=== PATIENT | female | born 1970 | race American Indian/Alaskan Native ===

== ENCOUNTER 2021-01-17 22:51 | Observation (INO) | payer BC, OTHER ==
[2021-01-17] MEDS ORDERED: Pantoprazole 40 MG Vial IVPUSH ONE (23:26)
[2021-01-17 23:40] LABS: ANION GAP 18.9 mEq/L (7-13); CHLORIDE,CL 96 mmol/L (98-107); SODIUM,NA 135 mmol/L (136-145)
[2021-01-17] MEDS ORDERED: Iopamidol 612 MG/ML 100 ML Bottle IVPUSH ONE (23:44)
[2021-01-18] MEDS ORDERED: Sodium Chloride 0.9% 500 ML IV SCH (00:15)
--- NOTE | 2021-01-18 00:55 | EDM.PDOC ---
ED HPI GENERAL MEDICAL PROBLEM - General Chief Complaint: Gastrointestinal Problem Stated Complaint: BLEEDING OUT OF REAREND. PER PT Time Seen by Provider: 01/17/21 23:10 Source of Information: Reports: Patient History Limitations: Reports: No Limitations - History of Present Illness INITIAL COMMENTS - FREE TEXT/NARRATIVE: ED with c/o bleeding from rectum 2 bloody stools today, similar episode couple months ago but did not follow up. Has not had colonoscopy in past. Admits hx ETOH daily , liter tequila daily. No nausea or vomiting. no fever, no urinary c/o. Has been told liver enzymes up in past but had gotten better. Last clinic estimates 6 mos ago. 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 - Past Surgical History Female Surgical History: Reports: Salpingo-Oophorectomy Other Female Surgeries/Procedures: Previous tubal with removal of 1 ovary and fallopian tube. Social & Family History - Tobacco Use Tobacco Use Status *Q: Never Tobacco User - Caffeine Use Caffeine Use: Reports: None - Alcohol Use Days Per Week of Alcohol Use: 7 Number of Drinks Per Day: 8 Total Drinks Per Week: 56 - Recreational Drug Use Recreational Drug Use: No ED ROS GENERAL - Review of Systems Review Of Systems: Comprehensive ROS is negative, except as noted in HPI. ED EXAM, GI/ABD - Physical Exam Exam: See Below Exam Limited By: No Limitations General Appearance: Alert, No Apparent Distress, Anxious Eyes: Bilateral: EOMI, Pale Conjunctiva Ears: Normal External Exam, Normal TMs Nose: Normal Inspection Throat/Mouth: Normal Inspection, Normal Lips, Normal Voice, Other (poor dentatio n) Head: Atraumatic, Normocephalic Neck: Normal Inspection Respiratory/Chest: No Respiratory Distress, Lungs Clear, Normal Breath Sounds Cardiovascular: Normal Peripheral Pulses, Regular Rate, Rhythm GI/Abdominal Exam: Normal Bowel Sounds, Soft, Non-Tender Rectal (Female) Exam: Heme + Stool Back Exam: Normal Inspection Extremities: Normal Inspection Neurological: Alert, Oriented, Normal Cognition Psychiatric: Normal Affect Skin Exam: Warm, Dry, Intact Course - Vital Signs Last Recorded V/S: Last Vital Signs Temp 98.4 F 01/18/21 08:00 Pulse 95 01/18/21 08:00 Resp 20 01/18/21 08:00 BP 100/65 01/18/21 08:00 Pulse Ox 97 01/18/21 08:00 - Orders/Labs/Meds Labs: Laboratory Tests 01/17/21 01/17/21 01/17/21 Range/Units 23:07 23:07 23:07 WBC 7.3 (5.0-10.0) 10^3/uL RBC 3.73 L (4.2-5.4) 10^6/uL Hgb 13.0 (12.0-16.0) g/dL Hct 38.7 (37.0-47.0) % MCV 103.8 H (80-100) fL MCH 34.9 H (27.0-34.0) pg MCHC 33.6 (33.0-35.0) g/dL Plt Count 127 L (150-450) 10^3/uL Neut % (Auto) 49.7 (42.2-75.2) % Lymph % (Auto) 38.6 (20.5-50.1) % [place] % (Auto) 10.6 H (2-8) % Eos % (Auto) 0.7 L (1.0-3.0) % Baso % (Auto) 0.4 (0.0-1.0) % Sodium 135 L (136-145) mmol/L Potassium 3.9 (3.5-5.1) mmol/L Chloride 96 L (98-107) mmol/L Carbon Dioxide 24 (21-32) mmol/L Anion Gap 18.9 H (7-13) mEq/L BUN 3 L (7-18) mg/dL Creatinine 0.50 L (0.55-1.02) mg/dL Est Cr Clr Drug Dosing 95.61 mL/min Estimated GFR (MDRD) > 60 BUN/Creatinine Ratio 6.0 (No establ ref range) Glucose 110 H (70-99) mg/dL Calcium 8.4 L (8.5-10.1) mg/dL Total Bilirubin 0.9 (0.2-1.0) mg/dL AST 283 H (15-37) U/L ALT 103 H (14-59) U/L Alkaline Phosphatase 308 H (46-116) U/L Total Protein 7.5 (6.4-8.2) g/dL Albumin 3.5 (3.4-5.0) g/dL Globulin 4.0 Albumin/Globulin Ratio 0.9 Amylase 40 (25-115) U/L Lipase 309 (73-393) U/L Urine Color (YELLOW) Urine Appearance (CLEAR) Urine pH (5.0-9.0) Ur Specific [place] (1.005-1.030) Urine Protein (NEGATIVE) Urine Glucose (UA) (NEGATIVE) Urine Ketones (NEGATIVE) Urine Occult Blood (NEGATIVE) Urine Nitrite (NEGATIVE) Urine Bilirubin (NEGATIVE) Urine Urobilinogen (0.2-1.0) mg/dL Ur Leukocyte Esterase (NEGATIVE) Urine RBC (0-5) /HPF Urine WBC (0-5/HPF) /HPF Ur Epithelial Cells (NOT SEEN) /HPF Urine Bacteria (0-FEW/HPF) /HPF Urine Opiates Screen (NEGATIVE) Ur Oxycodone Screen (NEGATIVE) Urine Methadone Screen (NEGATIVE) Ur Barbiturates Screen (NEGATIVE) U Tricyclic Antidepress (NEGATIVE) Ur Phencyclidine Scrn (NEGATIVE) Ur Amphetamine Screen (NEGATIVE) U Methamphetamines Scrn (NEGATIVE) Urine MDMA Screen (NEGATIVE) U Benzodiazepines Scrn (NEGATIVE) Urine Cocaine Screen (NEGATIVE) U Marijuana (THC) Screen (NEGATIVE) Ethyl Alcohol 332 (0) mg/dL SARS-CoV-2 RNA (HUSSAIN) (NEGATIVE) Blood Type O POSITIVE Gel Antibody Screen Negative 01/18/21 01/18/21 01/18/21 Range/Units 00:30 01:00 01:00 WBC (5.0-10.0) 10^3/uL RBC (4.2-5.4) 10^6/uL Hgb (12.0-16.0) g/dL Hct (37.0-47.0) % MCV (80-100) fL MCH (27.0-34.0) pg MCHC (33.0-35.0) g/dL Plt Count (150-450) 10^3/uL Neut % (Auto) (42.2-75.2) % Lymph % (Auto) (20.5-50.1) % [place] % (Auto) (2-8) % Eos % (Auto) (1.0-3.0) % Baso % (Auto) (0.0-1.0) % Sodium (136-145) mmol/L Potassium (3.5-5.1) mmol/L Chloride (98-107) mmol/L Carbon Dioxide (21-32) mmol/L Anion Gap (7-13) mEq/L BUN (7-18) mg/dL Creatinine (0.55-1.02) mg/dL Est Cr Clr Drug Dosing mL/min Estimated GFR (MDRD) BUN/Creatinine Ratio (No establ ref range) Glucose (70-99) mg/dL Calcium (8.5-10.1) mg/dL Total Bilirubin (0.2-1.0) mg/dL AST (15-37) U/L ALT (14-59) U/L Alkaline Phosphatase (46-116) U/L Total Protein (6.4-8.2) g/dL Albumin (3.4-5.0) g/dL Globulin Albumin/Globulin Ratio Amylase (25-115) U/L Lipase (73-393) U/L Urine Color Yellow (YELLOW) Urine Appearance Slightly cloudy (CLEAR) Urine pH 7.0 (5.0-9.0) Ur Specific [place] 1.010 (1.005-1.030) Urine Protein Negative (NEGATIVE) Urine Glucose (UA) Negative (NEGATIVE) Urine Ketones Negative (NEGATIVE) Urine Occult Blood Trace-intact H (NEGATIVE) Urine Nitrite Negative (NEGATIVE) Urine Bilirubin Negative (NEGATIVE) Urine Urobilinogen 0.2 (0.2-1.0) mg/dL Ur Leukocyte Esterase Negative (NEGATIVE) Urine RBC 0-5 (0-5) /HPF Urine WBC 0-5 (0-5/HPF) /HPF Ur Epithelial Cells Rare (NOT SEEN) /HPF Urine Bacteria Rare (0-FEW/HPF) /HPF Urine Opiates Screen Negative (NEGATIVE) Ur Oxycodone Screen Negative (NEGATIVE) Urine Methadone Screen Negative (NEGATIVE) Ur Barbiturates Screen Negative (NEGATIVE) U Tricyclic Antidepress Negative (NEGATIVE) Ur Phencyclidine Scrn Negative (NEGATIVE) Ur Amphetamine Screen Negative (NEGATIVE) U Methamphetamines Scrn Negative (NEGATIVE) Urine MDMA Screen Negative (NEGATIVE) U Benzodiazepines Scrn Negative (NEGATIVE) Urine Cocaine Screen Negative (NEGATIVE) U Marijuana (THC) Screen Negative (NEGATIVE) Ethyl Alcohol (0) mg/dL SARS-CoV-2 RNA (HUSSAIN) Negative (NEGATIVE) Blood Type Gel Antibody Screen 01/18/21 Range/Units 02:05 WBC (5.0-10.0) 10^3/uL RBC (4.2-5.4) 10^6/uL Hgb 11.3 L D (12.0-16.0) g/dL Hct 34.1 L (37.0-47.0) % MCV (80-100) fL MCH (27.0-34.0) pg MCHC (33.0-35.0) g/dL Plt Count (150-450) 10^3/uL Neut % (Auto) (42.2-75.2) % Lymph % (Auto) (20.5-50.1) % [place] % (Auto) (2-8) % Eos % (Auto) (1.0-3.0) % Baso % (Auto) (0.0-1.0) % Sodium (136-145) mmol/L Potassium (3.5-5.1) mmol/L Chloride (98-107) mmol/L Carbon Dioxide (21-32) mmol/L Anion Gap (7-13) mEq/L BUN (7-18) mg/dL Creatinine (0.55-1.02) mg/dL Est Cr Clr Drug Dosing mL/min Estimated GFR (MDRD) BUN/Creatinine Ratio (No establ ref range) Glucose (70-99) mg/dL Calcium (8.5-10.1) mg/dL Total Bilirubin (0.2-1.0) mg/dL AST (15-37) U/L ALT (14-59) U/L Alkaline Phosphatase (46-116) U/L Total Protein (6.4-8.2) g/dL Albumin (3.4-5.0) g/dL Globulin Albumin/Globulin Ratio Amylase (25-115) U/L Lipase (73-393) U/L Urine Color (YELLOW) Urine Appearance (CLEAR) Urine pH (5.0-9.0) Ur Specific [place] (1.005-1.030) Urine Protein (NEGATIVE) Urine Glucose (UA) (NEGATIVE) Urine Ketones (NEGATIVE) Urine Occult Blood (NEGATIVE) Urine Nitrite (NEGATIVE) Urine Bilirubin (NEGATIVE) Urine Urobilinogen (0.2-1.0) mg/dL Ur Leukocyte Esterase (NEGATIVE) Urine RBC (0-5) /HPF Urine WBC (0-5/HPF) /HPF Ur Epithelial Cells (NOT SEEN) /HPF Urine Bacteria (0-FEW/HPF) /HPF Urine Opiates Screen (NEGATIVE) Ur Oxycodone Screen (NEGATIVE) Urine Methadone Screen (NEGATIVE) Ur Barbiturates Screen (NEGATIVE) U Tricyclic Antidepress (NEGATIVE) Ur Phencyclidine Scrn (NEGATIVE) Ur Amphetamine Screen (NEGATIVE) U Methamphetamines Scrn (NEGATIVE) Urine MDMA Screen (NEGATIVE) U Benzodiazepines Scrn (NEGATIVE) Urine Cocaine Screen (NEGATIVE) U Marijuana (THC) Screen (NEGATIVE) Ethyl Alcohol (0) mg/dL SARS-CoV-2 RNA (HUSSAIN) (NEGATIVE) Blood Type Gel Antibody Screen Meds: Medications Discontinued Medications Generic Name Dose Route Start Last Admin Trade Name Freq PRN Reason Stop Dose Admin Sodium Chloride 500 mls @ 999 mls/hr 01/18/21 00:15 01/18/21 00:29 Normal Saline IV 999 mls/hr .BOLUS ANGE Administration Lactated Ringer's 1,000 mls @ 125 mls/hr 01/18/21 03:00 01/18/21 03:09 Ringers, Lactated IV 125 mls/hr ASDIRECTED ANGE Administration Influenza Virus Vaccine 1 each 01/18/21 09:00 01/18/21 10:27 Pharmacy To Dose - Influenza Vaccine IM Not Given DAILY [facility] Influenza Virus Vaccine 60 mcg 01/18/21 10:45 01/18/21 11:35 Flu Vacc [id number](6mos Up)/Pf 60 Mcg/0.5 Ml Syringe IM 01/18/21 10:46 60 mcg .ONCE ONE Administration Iopamidol 100 ml 01/17/21 23:44 01/18/21 00:14 Iopamidol 612 Mg/Ml 100 Ml Bottle IVPUSH 01/17/21 23:45 75 ml ONETIME ONE Administration Ondansetron HCl 4 mg 01/18/21 02:55 Ondansetron 4 Mg/2 Ml Sdv IVPUSH Q6H PRN Nausea/Vomiting Pantoprazole Sodium 80 mg 01/17/21 23:26 01/17/21 23:47 Pantoprazole 40 Mg Vial IVPUSH 01/17/21 23:27 80 mg .BOLUS ONE Administration - Re-Assessments/Exams Free Text/Narrative Re-Assessment/Exam: 01/18/21 02:32 [facility], No immediate bed available but will add to waiting list, currently #2 . GI bleed., multiple diverticuli on CT. Chronic ETOH. Departure - Departure Time of Disposition: 02:33 Disposition: Refer to Observation Condition: Fair Clinical Impression: GI bleed, Chronic alcohol dependence, continuous, Intoxication, Diverticulosis of colon - Discharge Information *PRESCRIPTION DRUG MONITORING PROGRAM REVIEWED*: No *COPY OF PRESCRIPTION DRUG MONITORING REPORT IN PATIENT SUSANA: No Sepsis Event Note (ED) - Evaluation Sepsis Screening Result: No Definite Risk
--- NOTE | 2021-01-18 01:08 | CT ---
PROCEDURE INFORMATION: Exam: CT Abdomen And Pelvis With Contrast Exam date and time: 01/18/2021 12:00 AM Age: 50 years old Clinical indication: Other: Rectal bleeding TECHNIQUE: Imaging protocol: Computed tomography of the abdomen and pelvis with contrast. Radiation optimization: All CT scans at this facility use at least one of these dose optimization techniques: automated exposure control; mA and/or kV adjustment per patient size (includes targeted exams where dose is matched to clinical indication); or iterative reconstruction. Contrast material: ISOVUE 300; Contrast volume: 75 ml; Contrast route: INTRAVENOUS (IV); COMPARISON: No relevant prior studies available. FINDINGS: Liver: Moderate hepatic steatosis Gallbladder and bile ducts: Normal. No calcified stones. No ductal dilation. Pancreas: Normal. No ductal dilation. Spleen: Normal. No splenomegaly. Adrenal glands: Normal. No mass. Kidneys and ureters: Normal. No hydronephrosis. Stomach and bowel: Scattered diverticuli throughout the colon. Pericolonic fat planes are preserved. Appendix: No evidence of appendicitis. Intraperitoneal space: Unremarkable. No free air. No significant fluid collection. Vasculature: Unremarkable. No abdominal aortic aneurysm. Lymph nodes: Unremarkable. No enlarged lymph nodes. Urinary bladder: Unremarkable as visualized. Reproductive: Suggestion of moderate-sized lower uterine body fibroid Bones/joints: Unremarkable. No acute fracture. Soft tissues: Unremarkable. IMPRESSION: 1. Diffuse mild colonic diverticulosis 2. Hepatic steatosis
[2021-01-18 01:11] LABS: AMPHETAMINES,URINE NEGATIVE (NEGATIVE); BARBITURATES,URINE NEGATIVE (NEGATIVE); BENZODIAZEPINE,URINE NEGATIVE (NEGATIVE); MDMA (ECSTASY), URINE NEGATIVE (NEGATIVE); METHADONE,URINE NEGATIVE (NEGATIVE); METHAMPHETAMINES,URINE NEGATIVE (NEGATIVE); OPIATES,URINE NEGATIVE (NEGATIVE); OXYCODONE,URINE NEGATIVE (NEGATIVE); PHENCYCLIDINE,URINE NEGATIVE (NEGATIVE); TCA,URINE NEGATIVE (NEGATIVE)
[2021-01-18] MEDS ORDERED: Ondansetron 4 MG/2 ML SDV IVPUSH PRN (02:55)
[2021-01-18] MEDS ORDERED: Lactated Ringers 1,000 ML IV SCH (03:00)
--- NOTE | 2021-01-18 10:34 | PCM.DCSUM1 ---
Discharge Summary - Hospital Course Free Text/Narrative:: Barb was admitted earlier this morning with hematochezia. She was noted to have an almost two-point hemoglobin drop when arriving to the ED. She was admitted overnight for observation, to monitor her bleeding, and consider possible transfer this morning to a tertiary care center. She reports feeling well this morning, she has not had any further bleeding per rectum since her admission from the ED. She was able to walk and eat breakfast this morning without any difficulties, is able to attend all of her ADLs without problem. - Discharge Data Discharge Date: 01/18/21 Discharge Disposition: Home, Self-Care 01 Condition: Stable - Referral to Home Health Primary Care Physician: Harvey Daniels - Discharge Plan *PRESCRIPTION DRUG MONITORING PROGRAM REVIEWED*: No *COPY OF PRESCRIPTION DRUG MONITORING REPORT IN PATIENT SUSANA: No Home Medications: Home Meds lisinopriL [Lisinopril] 20 mg PO DAILY 01/17/21 [History] Patient Handouts: Lower Gastrointestinal Bleeding Referrals: Jeremiah,Harvey [Primary Care Provider] - - Discharge Summary/Plan Comment DC Time >30 min.: No Total # of Minutes for Discharge Time: 15 - General Info Date of Service: 01/18/21 Admission Dx/Problem (Free Text: Admission Diagnosis/Problem Admission Diagnosis/Problem GI bleed not requiring more than 4 units of blood in 24 hours, ICU, or surgery Subjective Update: See above summary - Patient Data Vitals - Most Recent: Last Vital Signs Temp 98.4 F 01/18/21 08:00 Pulse 95 01/18/21 08:00 Resp 20 01/18/21 08:00 BP 100/65 01/18/21 08:00 Pulse Ox 97 01/18/21 08:00 Weight - Most Recent: 143 lb 9.6 oz I&O - Last 24 hours: Intake & Output 01/17/21 01/18/21 01/18/21 22:59 06:59 14:59 Intake Total 500 Output Total 400 Balance 100 Lab Results - Last 24 hrs: Laboratory Results - last 24 hr 01/17/21 01/17/21 01/17/21 Range/Units 23:07 23:07 23:07 WBC 7.3 (5.0-10.0) 10^3/uL RBC 3.73 L (4.2-5.4) 10^6/uL Hgb 13.0 (12.0-16.0) g/dL Hct 38.7 (37.0-47.0) % MCV 103.8 H (80-100) fL MCH 34.9 H (27.0-34.0) pg MCHC 33.6 (33.0-35.0) g/dL Plt Count 127 L (150-450) 10^3/uL Neut % (Auto) 49.7 (42.2-75.2) % Lymph % (Auto) 38.6 (20.5-50.1) % [place] % (Auto) 10.6 H (2-8) % Eos % (Auto) 0.7 L (1.0-3.0) % Baso % (Auto) 0.4 (0.0-1.0) % Sodium 135 L (136-145) mmol/L Potassium 3.9 (3.5-5.1) mmol/L Chloride 96 L (98-107) mmol/L Carbon Dioxide 24 (21-32) mmol/L Anion Gap 18.9 H (7-13) mEq/L BUN 3 L (7-18) mg/dL Creatinine 0.50 L (0.55-1.02) mg/dL Est Cr Clr Drug Dosing 95.61 mL/min Estimated GFR (MDRD) > 60 BUN/Creatinine Ratio 6.0 (No establ ref range) Glucose 110 H (70-99) mg/dL Calcium 8.4 L (8.5-10.1) mg/dL Total Bilirubin 0.9 (0.2-1.0) mg/dL AST 283 H (15-37) U/L ALT 103 H (14-59) U/L Alkaline Phosphatase 308 H (46-116) U/L Total Protein 7.5 (6.4-8.2) g/dL Albumin 3.5 (3.4-5.0) g/dL Globulin 4.0 Albumin/Globulin Ratio 0.9 Amylase 40 (25-115) U/L Lipase 309 (73-393) U/L Urine Color (YELLOW) Urine Appearance (CLEAR) Urine pH (5.0-9.0) Ur Specific [place] (1.005-1.030) Urine Protein (NEGATIVE) Urine Glucose (UA) (NEGATIVE) Urine Ketones (NEGATIVE) Urine Occult Blood (NEGATIVE) Urine Nitrite (NEGATIVE) Urine Bilirubin (NEGATIVE) Urine Urobilinogen (0.2-1.0) mg/dL Ur Leukocyte Esterase (NEGATIVE) Urine RBC (0-5) /HPF Urine WBC (0-5/HPF) /HPF Ur Epithelial Cells (NOT SEEN) /HPF Urine Bacteria (0-FEW/HPF) /HPF Urine Opiates Screen (NEGATIVE) Ur Oxycodone Screen (NEGATIVE) Urine Methadone Screen (NEGATIVE) Ur Barbiturates Screen (NEGATIVE) U Tricyclic Antidepress (NEGATIVE) Ur Phencyclidine Scrn (NEGATIVE) Ur Amphetamine Screen (NEGATIVE) U Methamphetamines Scrn (NEGATIVE) Urine MDMA Screen (NEGATIVE) U Benzodiazepines Scrn (NEGATIVE) Urine Cocaine Screen (NEGATIVE) U Marijuana (THC) Screen (NEGATIVE) Ethyl Alcohol 332 (0) mg/dL SARS-CoV-2 RNA (HUSSAIN) (NEGATIVE) Blood Type O POSITIVE Gel Antibody Screen Negative 01/18/21 01/18/21 01/18/21 Range/Units 00:30 01:00 01:00 WBC (5.0-10.0) 10^3/uL RBC (4.2-5.4) 10^6/uL Hgb (12.0-16.0) g/dL Hct (37.0-47.0) % MCV (80-100) fL MCH (27.0-34.0) pg MCHC (33.0-35.0) g/dL Plt Count (150-450) 10^3/uL Neut % (Auto) (42.2-75.2) % Lymph % (Auto) (20.5-50.1) % [place] % (Auto) (2-8) % Eos % (Auto) (1.0-3.0) % Baso % (Auto) (0.0-1.0) % Sodium (136-145) mmol/L Potassium (3.5-5.1) mmol/L Chloride (98-107) mmol/L Carbon Dioxide (21-32) mmol/L Anion Gap (7-13) mEq/L BUN (7-18) mg/dL Creatinine (0.55-1.02) mg/dL Est Cr Clr Drug Dosing mL/min Estimated GFR (MDRD) BUN/Creatinine Ratio (No establ ref range) Glucose (70-99) mg/dL Calcium (8.5-10.1) mg/dL Total Bilirubin (0.2-1.0) mg/dL AST (15-37) U/L ALT (14-59) U/L Alkaline Phosphatase (46-116) U/L Total Protein (6.4-8.2) g/dL Albumin (3.4-5.0) g/dL Globulin Albumin/Globulin Ratio Amylase (25-115) U/L Lipase (73-393) U/L Urine Color Yellow (YELLOW) Urine Appearance Slightly cloudy (CLEAR) Urine pH 7.0 (5.0-9.0) Ur Specific [place] 1.010 (1.005-1.030) Urine Protein Negative (NEGATIVE) Urine Glucose (UA) Negative (NEGATIVE) Urine Ketones Negative (NEGATIVE) Urine Occult Blood Trace-intact H (NEGATIVE) Urine Nitrite Negative (NEGATIVE) Urine Bilirubin Negative (NEGATIVE) Urine Urobilinogen 0.2 (0.2-1.0) mg/dL Ur Leukocyte Esterase Negative (NEGATIVE) Urine RBC 0-5 (0-5) /HPF Urine WBC 0-5 (0-5/HPF) /HPF Ur Epithelial Cells Rare (NOT SEEN) /HPF Urine Bacteria Rare (0-FEW/HPF) /HPF Urine Opiates Screen Negative (NEGATIVE) Ur Oxycodone Screen Negative (NEGATIVE) Urine Methadone Screen Negative (NEGATIVE) Ur Barbiturates Screen Negative (NEGATIVE) U Tricyclic Antidepress Negative (NEGATIVE) Ur Phencyclidine Scrn Negative (NEGATIVE) Ur Amphetamine Screen Negative (NEGATIVE) U Methamphetamines Scrn Negative (NEGATIVE) Urine MDMA Screen Negative (NEGATIVE) U Benzodiazepines Scrn Negative (NEGATIVE) Urine Cocaine Screen Negative (NEGATIVE) U Marijuana (THC) Screen Negative (NEGATIVE) Ethyl Alcohol (0) mg/dL SARS-CoV-2 RNA (HUSSAIN) Negative (NEGATIVE) Blood Type Gel Antibody Screen 01/18/21 Range/Units 02:05 WBC (5.0-10.0) 10^3/uL RBC (4.2-5.4) 10^6/uL Hgb 11.3 L D (12.0-16.0) g/dL Hct 34.1 L (37.0-47.0) % MCV (80-100) fL MCH (27.0-34.0) pg MCHC (33.0-35.0) g/dL Plt Count (150-450) 10^3/uL Neut % (Auto) (42.2-75.2) % Lymph % (Auto) (20.5-50.1) % [place] % (Auto) (2-8) % Eos % (Auto) (1.0-3.0) % Baso % (Auto) (0.0-1.0) % Sodium (136-145) mmol/L Potassium (3.5-5.1) mmol/L Chloride (98-107) mmol/L Carbon Dioxide (21-32) mmol/L Anion Gap (7-13) mEq/L BUN (7-18) mg/dL Creatinine (0.55-1.02) mg/dL Est Cr Clr Drug Dosing mL/min Estimated GFR (MDRD) BUN/Creatinine Ratio (No establ ref range) Glucose (70-99) mg/dL Calcium (8.5-10.1) mg/dL Total Bilirubin (0.2-1.0) mg/dL AST (15-37) U/L ALT (14-59) U/L Alkaline Phosphatase (46-116) U/L Total Protein (6.4-8.2) g/dL Albumin (3.4-5.0) g/dL Globulin Albumin/Globulin Ratio Amylase (25-115) U/L Lipase (73-393) U/L Urine Color (YELLOW) Urine Appearance (CLEAR) Urine pH (5.0-9.0) Ur Specific [place] (1.005-1.030) Urine Protein (NEGATIVE) Urine Glucose (UA) (NEGATIVE) Urine Ketones (NEGATIVE) Urine Occult Blood (NEGATIVE) Urine Nitrite (NEGATIVE) Urine Bilirubin (NEGATIVE) Urine Urobilinogen (0.2-1.0) mg/dL Ur Leukocyte Esterase (NEGATIVE) Urine RBC (0-5) /HPF Urine WBC (0-5/HPF) /HPF Ur Epithelial Cells (NOT SEEN) /HPF Urine Bacteria (0-FEW/HPF) /HPF Urine Opiates Screen (NEGATIVE) Ur Oxycodone Screen (NEGATIVE) Urine Methadone Screen (NEGATIVE) Ur Barbiturates Screen (NEGATIVE) U Tricyclic Antidepress (NEGATIVE) Ur Phencyclidine Scrn (NEGATIVE) Ur Amphetamine Screen (NEGATIVE) U Methamphetamines Scrn (NEGATIVE) Urine MDMA Screen (NEGATIVE) U Benzodiazepines Scrn (NEGATIVE) Urine Cocaine Screen (NEGATIVE) U Marijuana (THC) Screen (NEGATIVE) Ethyl Alcohol (0) mg/dL SARS-CoV-2 RNA (HUSSAIN) (NEGATIVE) Blood Type Gel Antibody Screen VENKAT Results - Last 24 hrs: Microbiology 01/17/21 23:33 Stool Occult Blood (VENKAT) - Final Stool / Feces Med Orders - Current: Current Medications Sodium Chloride (Normal Saline) 500 mls @ 999 mls/hr IV .BOLUS ANGE Last Admin: 01/18/21 00:29 Dose: 999 mls/hr Documented by: Lactated Ringer's (Ringers, Lactated) 1,000 mls @ 125 mls/hr IV ASDIRECTED ANGE Last Admin: 01/18/21 03:09 Dose: 125 mls/hr Documented by: Influenza Virus Vaccine (Pharmacy To Dose - Influenza Vaccine) 1 each IM DAILY [facility] Last Admin: 01/18/21 10:27 Dose: Not Given Documented by: Ondansetron HCl (Ondansetron 4 Mg/2 Ml Sdv) 4 mg IVPUSH Q6H PRN PRN Reason: Nausea/Vomiting Discontinued Medications Iopamidol (Iopamidol 612 Mg/Ml 100 Ml Bottle) 100 ml IVPUSH ONETIME ONE Stop: 01/17/21 23:45 Last Admin: 01/18/21 00:14 Dose: 75 ml Documented by: Pantoprazole Sodium (Pantoprazole 40 Mg Vial) 80 mg IVPUSH .BOLUS ONE Stop: 01/17/21 23:27 Last Admin: 01/17/21 23:47 Dose: 80 mg Documented by:
--- NOTE | 2021-01-18 14:00 | PCM.HP ---
H&P History of Present Illness - General Date of Service: 01/18/21 Admit Problem/Dx: Admission Diagnosis/Problem Admission Diagnosis/Problem GI bleed not requiring more than 4 units of blood in 24 hours, ICU, or surgery - History of Present Illness Initial Comments - Free Text/Narative: Barb is a 50-year-old woman who presented to the ER this evening with bright red blood per rectum. She has a known history of diverticulosis, and has had some rectal bleeding in the past. Patient states that she has a significant history of chronic alcohol abuse, she is actually currently intoxicated that she presents to the ED. She reports several episodes yesterday and today with brigh t red blood per rectum. When she first arrived in the ED, hemoglobin was 13.0. This was checked 1 hour later, and was found to have dropped to 11.3. Decision was made to admit her overnight for observation, with possible transfer to higher level of care for surgical intervention or urgent colonoscopy if the bleeding continues 0 Pain Score (Numeric/FACES): 0 - Related Data Allergies/Adverse Reactions: Allergies Allergy/AdvReac Type Severity Reaction Status Date / Time No Known Allergies Allergy Verified 01/17/21 23:05 Home Medications: Home Meds lisinopriL [Lisinopril] 20 mg PO DAILY 01/17/21 [History] Past Medical History Cardiovascular History: Reports: Hypertension [employer] History: Reports: Other (See Below) Other OB/BYN History: 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 - Past Surgical History Female Surgical History: Reports: Salpingo-Oophorectomy Other Female Surgeries/Procedures: Previous tubal with removal of 1 ovary and fallopian tube. Social & Family History - Family History Family Medical History: Unobtainable - Tobacco Use Tobacco Use Status *Q: Never Tobacco User Second Hand Smoke Exposure: No - Caffeine Use Caffeine Use: Reports: None - Alcohol Use Days Per Week of Alcohol Use: 7 Number of Drinks Per Day: 8 Total Drinks Per Week: 56 - Recreational Drug Use Recreational Drug Use: No H&P Review of Systems - Review of Systems: Review Of Systems: Comprehensive ROS is negative, except as noted in HPI. Exam - Exam Exam: See Below - Vital Signs Vital Signs: Last Vital Signs Temp 98.4 F 01/18/21 08:00 Pulse 95 01/18/21 08:00 Resp 20 01/18/21 08:00 BP 100/65 01/18/21 08:00 Pulse Ox 97 01/18/21 08:00 Weight: 143 lb 9.6 oz - Exam Physical Exam Comments:: General: Patient is a 50-year-old woman in no acute distress. She is able to participate normally in her conversation, even though she is intoxicated with alcohol Oropharynx is clear, mucous membranes are moist Neck: Supple, no lymphadenopathy Heart: Regular rate and rhythm, no murmurs Lungs: Clear to auscultation throughout Abdomen: Soft, nontender to palpation, normal bowel sounds heard throughout She reports that she has had a bowel movement since coming to the ER here and there was no blood in that ER nursing reports no further rectal bleeding - Patient Data Lab Results Last 24 hrs: Laboratory Results - last 24 hr 01/17/21 01/17/21 01/17/21 Range/Units 23:07 23:07 23:07 WBC 7.3 (5.0-10.0) 10^3/uL RBC 3.73 L (4.2-5.4) 10^6/uL Hgb 13.0 (12.0-16.0) g/dL Hct 38.7 (37.0-47.0) % MCV 103.8 H (80-100) fL MCH 34.9 H (27.0-34.0) pg MCHC 33.6 (33.0-35.0) g/dL Plt Count 127 L (150-450) 10^3/uL Neut % (Auto) 49.7 (42.2-75.2) % Lymph % (Auto) 38.6 (20.5-50.1) % [place] % (Auto) 10.6 H (2-8) % Eos % (Auto) 0.7 L (1.0-3.0) % Baso % (Auto) 0.4 (0.0-1.0) % Sodium 135 L (136-145) mmol/L Potassium 3.9 (3.5-5.1) mmol/L Chloride 96 L (98-107) mmol/L Carbon Dioxide 24 (21-32) mmol/L Anion Gap 18.9 H (7-13) mEq/L BUN 3 L (7-18) mg/dL Creatinine 0.50 L (0.55-1.02) mg/dL Est Cr Clr Drug Dosing 95.61 mL/min Estimated GFR (MDRD) > 60 BUN/Creatinine Ratio 6.0 (No establ ref range) Glucose 110 H (70-99) mg/dL Calcium 8.4 L (8.5-10.1) mg/dL Total Bilirubin 0.9 (0.2-1.0) mg/dL AST 283 H (15-37) U/L ALT 103 H (14-59) U/L Alkaline Phosphatase 308 H (46-116) U/L Total Protein 7.5 (6.4-8.2) g/dL Albumin 3.5 (3.4-5.0) g/dL Globulin 4.0 Albumin/Globulin Ratio 0.9 Amylase 40 (25-115) U/L Lipase 309 (73-393) U/L Urine Color (YELLOW) Urine Appearance (CLEAR) Urine pH (5.0-9.0) Ur Specific [place] (1.005-1.030) Urine Protein (NEGATIVE) Urine Glucose (UA) (NEGATIVE) Urine Ketones (NEGATIVE) Urine Occult Blood (NEGATIVE) Urine Nitrite (NEGATIVE) Urine Bilirubin (NEGATIVE) Urine Urobilinogen (0.2-1.0) mg/dL Ur Leukocyte Esterase (NEGATIVE) Urine RBC (0-5) /HPF Urine WBC (0-5/HPF) /HPF Ur Epithelial Cells (NOT SEEN) /HPF Urine Bacteria (0-FEW/HPF) /HPF Urine Opiates Screen (NEGATIVE) Ur Oxycodone Screen (NEGATIVE) Urine Methadone Screen (NEGATIVE) Ur Barbiturates Screen (NEGATIVE) U Tricyclic Antidepress (NEGATIVE) Ur Phencyclidine Scrn (NEGATIVE) Ur Amphetamine Screen (NEGATIVE) U Methamphetamines Scrn (NEGATIVE) Urine MDMA Screen (NEGATIVE) U Benzodiazepines Scrn (NEGATIVE) Urine Cocaine Screen (NEGATIVE) U Marijuana (THC) Screen (NEGATIVE) Ethyl Alcohol 332 (0) mg/dL SARS-CoV-2 RNA (HUSSAIN) (NEGATIVE) Blood Type O POSITIVE Gel Antibody Screen Negative 01/18/21 01/18/21 01/18/21 Range/Units 00:30 01:00 01:00 WBC (5.0-10.0) 10^3/uL RBC (4.2-5.4) 10^6/uL Hgb (12.0-16.0) g/dL Hct (37.0-47.0) % MCV (80-100) fL MCH (27.0-34.0) pg MCHC (33.0-35.0) g/dL Plt Count (150-450) 10^3/uL Neut % (Auto) (42.2-75.2) % Lymph % (Auto) (20.5-50.1) % [place] % (Auto) (2-8) % Eos % (Auto) (1.0-3.0) % Baso % (Auto) (0.0-1.0) % Sodium (136-145) mmol/L Potassium (3.5-5.1) mmol/L Chloride (98-107) mmol/L Carbon Dioxide (21-32) mmol/L Anion Gap (7-13) mEq/L BUN (7-18) mg/dL Creatinine (0.55-1.02) mg/dL Est Cr Clr Drug Dosing mL/min Estimated GFR (MDRD) BUN/Creatinine Ratio (No establ ref range) Glucose (70-99) mg/dL Calcium (8.5-10.1) mg/dL Total Bilirubin (0.2-1.0) mg/dL AST (15-37) U/L ALT (14-59) U/L Alkaline Phosphatase (46-116) U/L Total Protein (6.4-8.2) g/dL Albumin (3.4-5.0) g/dL Globulin Albumin/Globulin Ratio Amylase (25-115) U/L Lipase (73-393) U/L Urine Color Yellow (YELLOW) Urine Appearance Slightly cloudy (CLEAR) Urine pH 7.0 (5.0-9.0) Ur Specific [place] 1.010 (1.005-1.030) Urine Protein Negative (NEGATIVE) Urine Glucose (UA) Negative (NEGATIVE) Urine Ketones Negative (NEGATIVE) Urine Occult Blood Trace-intact H (NEGATIVE) Urine Nitrite Negative (NEGATIVE) Urine Bilirubin Negative (NEGATIVE) Urine Urobilinogen 0.2 (0.2-1.0) mg/dL Ur Leukocyte Esterase Negative (NEGATIVE) Urine RBC 0-5 (0-5) /HPF Urine WBC 0-5 (0-5/HPF) /HPF Ur Epithelial Cells Rare (NOT SEEN) /HPF Urine Bacteria Rare (0-FEW/HPF) /HPF Urine Opiates Screen Negative (NEGATIVE) Ur Oxycodone Screen Negative (NEGATIVE) Urine Methadone Screen Negative (NEGATIVE) Ur Barbiturates Screen Negative (NEGATIVE) U Tricyclic Antidepress Negative (NEGATIVE) Ur Phencyclidine Scrn Negative (NEGATIVE) Ur Amphetamine Screen Negative (NEGATIVE) U Methamphetamines Scrn Negative (NEGATIVE) Urine MDMA Screen Negative (NEGATIVE) U Benzodiazepines Scrn Negative (NEGATIVE) Urine Cocaine Screen Negative (NEGATIVE) U Marijuana (THC) Screen Negative (NEGATIVE) Ethyl Alcohol (0) mg/dL SARS-CoV-2 RNA (HUSSAIN) Negative (NEGATIVE) Blood Type Gel Antibody Screen 01/18/21 Range/Units 02:05 WBC (5.0-10.0) 10^3/uL RBC (4.2-5.4) 10^6/uL Hgb 11.3 L D (12.0-16.0) g/dL Hct 34.1 L (37.0-47.0) % MCV (80-100) fL MCH (27.0-34.0) pg MCHC (33.0-35.0) g/dL Plt Count (150-450) 10^3/uL Neut % (Auto) (42.2-75.2) % Lymph % (Auto) (20.5-50.1) % [place] % (Auto) (2-8) % Eos % (Auto) (1.0-3.0) % Baso % (Auto) (0.0-1.0) % Sodium (136-145) mmol/L Potassium (3.5-5.1) mmol/L Chloride (98-107) mmol/L Carbon Dioxide (21-32) mmol/L Anion Gap (7-13) mEq/L BUN (7-18) mg/dL Creatinine (0.55-1.02) mg/dL Est Cr Clr Drug Dosing mL/min Estimated GFR (MDRD) BUN/Creatinine Ratio (No establ ref range) Glucose (70-99) mg/dL Calcium (8.5-10.1) mg/dL Total Bilirubin (0.2-1.0) mg/dL AST (15-37) U/L ALT (14-59) U/L Alkaline Phosphatase (46-116) U/L Total Protein (6.4-8.2) g/dL Albumin (3.4-5.0) g/dL Globulin Albumin/Globulin Ratio Amylase (25-115) U/L Lipase (73-393) U/L Urine Color (YELLOW) Urine Appearance (CLEAR) Urine pH (5.0-9.0) Ur Specific [place] (1.005-1.030) Urine Protein (NEGATIVE) Urine Glucose (UA) (NEGATIVE) Urine Ketones (NEGATIVE) Urine Occult Blood (NEGATIVE) Urine Nitrite (NEGATIVE) Urine Bilirubin (NEGATIVE) Urine Urobilinogen (0.2-1.0) mg/dL Ur Leukocyte Esterase (NEGATIVE) Urine RBC (0-5) /HPF Urine WBC (0-5/HPF) /HPF Ur Epithelial Cells (NOT SEEN) /HPF Urine Bacteria (0-FEW/HPF) /HPF Urine Opiates Screen (NEGATIVE) Ur Oxycodone Screen (NEGATIVE) Urine Methadone Screen (NEGATIVE) Ur Barbiturates Screen (NEGATIVE) U Tricyclic Antidepress (NEGATIVE) Ur Phencyclidine Scrn (NEGATIVE) Ur Amphetamine Screen (NEGATIVE) U Methamphetamines Scrn (NEGATIVE) Urine MDMA Screen (NEGATIVE) U Benzodiazepines Scrn (NEGATIVE) Urine Cocaine Screen (NEGATIVE) U Marijuana (THC) Screen (NEGATIVE) Ethyl Alcohol (0) mg/dL SARS-CoV-2 RNA (HUSSAIN) (NEGATIVE) Blood Type Gel Antibody Screen Result Diagrams: 01/18/21 02:05 01/17/21 23:07 Ja Results Last 24 hrs: Microbiology 01/17/21 23:33 Stool Occult Blood (JA) - Final Stool / Feces *Q Meaningful Use (ADM) - VTE Risk Assess *Q Each Risk Factor Represents 1 Point: Age 41 - 59 years Total Score 1 Point Risk Factors: 1 Each Risk Factor Represents 2 Points: None Total Score 2 Point Risk Factors: 0 Each Risk Factor Represents 3 Points: None Total Score 3 Point Risk Factors: 0 Each Risk Factor Represents 5 Points: None Total Score 5 Point Risk Factors: 0 Venous Thromboembolism Risk Factor Score *Q: 1 - Problem List (1) Hematochezia SNOMED Code(s): 060195495 ICD Code: K92.1 - MELENA Status: Acute (2) Chronic alcohol dependence, continuous SNOMED Code(s): 712570964 ICD Code: F10.20 - ALCOHOL DEPENDENCE, UNCOMPLICATED Status: Acute Problem List Initiated/Reviewed/Updated: Yes Orders Last 24hrs: Active Orders 24 hr Category Date Time Status Admission Diagnosis [ADT] Stat ADT 01/18/21 02:38 Ordered Admission Status [Patient Status] [ADT] Stat ADT 01/18/21 02:38 Active Oxygen Therapy [RC] PRN Care 01/18/21 02:55 Active Ready for Discharge [RC] PER UNIT ROUTINE Care 01/18/21 10:35 Active Up ad Edie [RC] ASDIRECTED Care 01/18/21 02:55 Active VTE/DVT Education [RC] Care 01/18/21 02:55 Active Vaccine to be Administered/Admin Charge [RC] ASDIRECTED Care 01/18/21 04:02 Active Vital Signs [RC] 04,08,12,16,20,00 Care 01/18/21 02:55 Active Nothing per Oral Now Diet [DIET] Diet 01/18/21 Breakfast Active Lactated Ringers [Ringers, Lactated] 1,000 ml Med 01/18/21 03:00 Active IV ASDIRECTED Ondansetron [Zofran] Med 01/18/21 02:55 Active 4 mg IVPUSH Q6H PRN Pharmacy to Dose - InFluenza V [Pharmacy to Dose - Med 01/18/21 09:00 Active InFluenza Vaccine] 1 each IM DAILY Sodium Chloride 0.9% [Normal Saline] 500 ml Med 01/18/21 00:15 Active IV .BOLUS Resuscitation Status Routine Resus Stat 01/18/21 02:55 Ordered Medication Orders Sodium Chloride (Normal Saline) 500 mls @ 999 mls/hr IV .BOLUS [facility] Last Admin: 01/18/21 00:29 Dose: 999 mls/hr Documented by: PURA Lactated Ringer's (Ringers, Lactated) 1,000 mls @ 125 mls/hr IV ASDIRECTED ANGE Last Admin: 01/18/21 03:09 Dose: 125 mls/hr Documented by: JANAY Influenza Virus Vaccine (Pharmacy To Dose - Influenza Vaccine) 1 each IM DAILY [facility] Last Admin: 01/18/21 10:27 Dose: Not Given Documented by: [id number] Ondansetron HCl (Ondansetron 4 Mg/2 Ml Sdv) 4 mg IVPUSH Q6H PRN PRN Reason: Nausea/Vomiting Assessment/Plan Comment:: Assessment: 1. 50-year-old woman with history of diverticulosis and chronic alcohol abuse, now with hematochezia 2. Acute alcohol intoxication Plan: 1. Will observe her overnight for further hematochezia. She will also need to sleep off the alcohol in her system as well. If she has any further bright red blood per rectum, we will consider transfer to tertiary care center for further intervention. If not, she will be discharged home, with arrangements made for outpatient follow-up.
== END 2021-01-18 12:00 | disposition home or self-care (01) ==
LOC: DL.ED 22:51 → DL.MS 01-18 02:38 → DL.ED 01-18 02:50
PROVIDERS: ADMIT Family Medicine; ATTEND Family Medicine
DX: K92.1 Melena (principal); K57.30 Diverticulosis of large intestine without perforation or abscess without bleeding; F10.129 Alcohol abuse with intoxication, unspecified; Z98.890 Other specified postprocedural states; Z20.822 Contact with and (suspected) exposure to COVID-19
CPT/HCPCS: 36415; 74177; 80053; 80305; 80307; 81001; 82150; 82272; 83690; 85014; 85018; 85025; 86850; 86900; 86901; 87635; 90471; 90686; C9113; J7040; J7120; Q9967; G0008; U0002

== ENCOUNTER 2021-05-08 09:57 | Inpatient (IN) | payer OTHER ==
[2021-05-08] MEDS ORDERED: Sodium Chloride 0.9% 1,000 ML IV ONE ×3 (11:26→15:52)
[2021-05-08] MEDS ORDERED: Pantoprazole 40 MG Vial IVPUSH ONE (11:28)
[2021-05-08 12:21] LABS: ANION GAP 16.9 mEq/L (7-13); CHLORIDE,CL 102 mmol/L (98-107); SODIUM,NA 135 mmol/L (136-145)
[2021-05-08] MEDS ORDERED: Iopamidol 612 MG/ML 100 ML Bottle IVPUSH ONE (12:27)
[2021-05-08 12:55] LABS: CORONAVIRUS COVID-19 NAA POSITIVE (NEGATIVE)
[2021-05-08] MEDS ORDERED: Thiamine 100 MG Tab PO SCH (21:15)
[2021-05-08] MEDS ORDERED: Folic Acid 1 MG Tab PO SCH (21:15)
[2021-05-08] MEDS ORDERED: Sodium Chloride 0.9% 1,000 ML IV SCH (21:45)
[2021-05-08] MEDS ORDERED: LORazepam 2 MG/ML SDV IVPUSH PRN (21:46)
[2021-05-08] MEDS ORDERED: LORazepam 0.5 MG Tab PO PRN (21:46)
[2021-05-08] MEDS ORDERED: Ondansetron 4 MG/2 ML SDV IVPUSH PRN (21:50)
[2021-05-08] MEDS ORDERED: Acetaminophen 325 MG Tab PO PRN (21:50)
[2021-05-08] MEDS ORDERED: Sodium Chloride 0.9% 500 ML IV SCH (21:50)
[2021-05-08] MEDS ORDERED: Phytonadione 1 MG/0.5 ML Syringe SUBCUT ONE (21:50)
[2021-05-08] MEDS ORDERED: oxyCODONE 5 MG Tab PO PRN (21:50)
[2021-05-08] MEDS ORDERED: Temazepam 15 MG Cap PO PRN (21:50)
[2021-05-08] MEDS ORDERED: Rifaximin 550 MG Tab PO SCH (22:00)
[2021-05-08] MEDS ORDERED: Octreotide 100 MCG in Sodium Chloride 0.9% 99 ML IV SCH (22:00)
[2021-05-08] MEDS ORDERED: cefTRIAXone 1 GM in Sodium Chloride 0.9% 50 ML IV SCH (22:00)
[2021-05-08] MEDS ORDERED: Octreotide 500 MCG in Sodium Chloride 0.9% 250 ML IV SCH (22:30)
[2021-05-09] MEDS ORDERED: Pantoprazole 40 MG Vial IVPUSH SCH (08:00)
[2021-05-09] MEDS ORDERED: Cholecalciferol (Vitamin D3) 25 MCG Tab PO SCH (09:00)
[2021-05-09] MEDS ORDERED: Multivitamin Tab PO SCH (09:00)
[2021-05-09] MEDS ORDERED: Iron Polysaccharides Complex 150 MG Cap PO SCH (09:00)
== END 2021-05-09 02:00 | DRG 177 ==
LOC: DL.ED 09:57 → DL.MS 18:58
PROVIDERS: ADMIT Internal Medicine; ATTEND Internal Medicine
PROC: 8E0ZXY6 Isolation (ICD-10-PCS; principal; 2021-05-08)
PROC: 30233N1 Transfusion of Nonautologous Red Blood Cells into Peripheral Vein, Percutaneous Approach (ICD-10-PCS; 2021-05-09)
DX: K92.1 Melena (principal); U07.1 COVID-19; R57.1 Hypovolemic shock; Y90.9 Presence of alcohol in blood, level not specified; D50.0 Iron deficiency anemia secondary to blood loss (chronic); K72.00 Acute and subacute hepatic failure without coma; K57.91 Diverticulosis of intestine, part unspecified, without perforation or abscess with bleeding; Z79.899 Other long term (current) drug therapy; D62 Acute posthemorrhagic anemia; N17.9 Acute kidney failure, unspecified; E87.1 Hypo-osmolality and hyponatremia; A08.39 Other viral enteritis; F10.20 Alcohol dependence, uncomplicated; K57.30 Diverticulosis of large intestine without perforation or abscess without bleeding; I10 Essential (primary) hypertension; Z90.722 Acquired absence of ovaries, bilateral
CPT/HCPCS: 0240U; 36415; 36430; 71045; 74177; 80053; 80307; 82140; 82150; 82272; 83605; 83690; 84484; 85014; 85018; 85025; 85610; 86850; 86900; 86901; 86920; 86922; 87040; 93005; 93010; 96374; 99285; 99285-25; A9270-GY; C9113; J0696; J2354-JA; J3430; J7030; J7040; J7050; P9016; Q9967

== ENCOUNTER 2021-08-10 17:35 | Emergency (ER) | payer OTHER ==
[2021-08-10 19:00] LABS: ANION GAP 18.2 mEq/L (7-13)
== END 2021-08-11 02:20 | disposition home or self-care (01) ==
LOC: DL.ED 17:35
DX: K76.9 Liver disease, unspecified (principal); D64.9 Anemia, unspecified; I10 Essential (primary) hypertension; Z86.16 Personal history of COVID-19; Z79.899 Other long term (current) drug therapy
CPT/HCPCS: 36415; 36430; 80053; 85025; 86850; 86900; 86901; 86920; 86922; 99284; P9016

== ENCOUNTER 2021-08-28 13:48 | Emergency (ER) | payer OTHER ==
[2021-08-28] MEDS ORDERED: metroNIDAZOLE 250 MG Tab PO ONE ×2 (13:49→18:08)
[2021-08-28] MEDS ORDERED: Nitrofurantoin Monohydrate/Macrocrystalline 100 MG Cap PO ONE ×2 (13:49→18:08)
[2021-08-28 15:28] LABS: CHLORIDE,CL 97 mmol/L (98-107)
[2021-08-28] MEDS ORDERED: Sodium Chloride 0.9% 1,000 ML IV ONE (15:46)
[2021-08-28 15:48] LABS: ANION GAP 12.2 mEq/L (7-13); SODIUM,NA 127 mmol/L (136-145)
[2021-08-28 17:01] LABS: AMPHETAMINES,URINE NEGATIVE (NEGATIVE); BARBITURATES,URINE NEGATIVE (NEGATIVE); BENZODIAZEPINE,URINE NEGATIVE (NEGATIVE); MDMA (ECSTASY), URINE NEGATIVE (NEGATIVE); METHADONE,URINE NEGATIVE (NEGATIVE); METHAMPHETAMINES,URINE NEGATIVE (NEGATIVE); OPIATES,URINE NEGATIVE (NEGATIVE); OXYCODONE,URINE NEGATIVE (NEGATIVE); PHENCYCLIDINE,URINE NEGATIVE (NEGATIVE); TCA,URINE NEGATIVE (NEGATIVE)
[2021-08-28] MEDS ORDERED: metroNIDAZOLE 250 MG Tab ONE (18:23)
[2021-08-28] MEDS ORDERED: Nitrofurantoin Monohydrate/Macrocrystalline 100 MG Cap ONE (18:23)
== END 2021-08-28 18:45 | disposition home or self-care (01) ==
LOC: DL.ED 13:48
DX: K70.30 Alcoholic cirrhosis of liver without ascites (principal); N30.01 Acute cystitis with hematuria; D64.9 Anemia, unspecified; E87.1 Hypo-osmolality and hyponatremia; N76.0 Acute vaginitis; B96.89 Other specified bacterial agents as the cause of diseases classified elsewhere; I10 Essential (primary) hypertension; Z79.899 Other long term (current) drug therapy; Z86.16 Personal history of COVID-19
CPT/HCPCS: 36415; 80053; 80305-QW; 80307; 81001; 82140; 83605; 83880; 85025; 86850; 86900; 86901; 87086; 96360; 99284; 99284-25; A9270-GY; J7030

== ENCOUNTER 2021-10-30 11:05 | Observation (INO) | payer OTHER ==
[2021-10-30] MEDS ORDERED: Sodium Chloride 0.9% 10 ML Syringe FLUSH PRN (11:23)
[2021-10-30] MEDS ORDERED: Dexamethasone 4 MG/ML SDV IVPUSH ONE ×3 (11:24→16:30)
[2021-10-30] MEDS ORDERED: Furosemide 40 MG/4 ML VIAL IV ONE (11:24)
[2021-10-30] MEDS ORDERED: diphenhydrAMINE 50 MG/ML SDV IV ONE (11:24)
[2021-10-30] MEDS ORDERED: Furosemide 20 MG/2 ML VIAL IVPUSH ONE ×5 (11:31→23:30)
[2021-10-30 12:14] LABS: ANION GAP 15.3 mEq/L (7-13); CHLORIDE,CL 103 mmol/L (98-107); SODIUM,NA 134 mmol/L (136-145)
[2021-10-30 12:15] LABS: ESTIMATED GFR 74 mL/min (>=60)
[2021-10-30] MEDS ORDERED: Sodium Polystyrene Sulfonate 15 GM/60 ML Susp 60 ML Bot PO ONE (12:26)
[2021-10-30] MEDS ORDERED: Calcium Chloride 10% 1 GM/10 ML Syringe IVPUSH ONE (12:27)
[2021-10-30 12:35] LABS: PTT,PARTIAL THROMBOPLSTIN TIME 28.1 SEC (22.0-34.0)
[2021-10-30 13:28] LABS: AMPHETAMINES,URINE POSITIVE (NEGATIVE); BARBITURATES,URINE NEGATIVE (NEGATIVE); BENZODIAZEPINE,URINE NEGATIVE (NEGATIVE); MDMA (ECSTASY), URINE NEGATIVE (NEGATIVE); METHADONE,URINE NEGATIVE (NEGATIVE); METHAMPHETAMINES,URINE NEGATIVE (NEGATIVE); OPIATES,URINE NEGATIVE (NEGATIVE); PHENCYCLIDINE,URINE NEGATIVE (NEGATIVE); TCA,URINE NEGATIVE (NEGATIVE)
[2021-10-30 13:29] LABS: OXYCODONE,URINE NEGATIVE (NEGATIVE)
[2021-10-30 13:36] LABS: RESPIRATORY SYNCYTIAL VIR NAA NEGATIVE (NEGATIVE)
[2021-10-30 13:37] LABS: CORONAVIRUS COVID-19 NAA POSITIVE (NEGATIVE)
[2021-10-30] MEDS ORDERED: 50% Dextrose in Water 50 ML Syringe IVPUSH ONE ×2 (14:17→20:09)
[2021-10-30] MEDS ORDERED: Insulin Regular, Human 100 Units/ML 3 ML Vial IV ONE ×2 (14:18→20:10)
[2021-10-30] MEDS ORDERED: Glucagon,Human Recombinant 1 MG Vial IM PRN (14:18)
[2021-10-30] MEDS ORDERED: 50% Dextrose in Water 50 ML Syringe IVPUSH PRN (14:18)
[2021-10-30] MEDS ORDERED: Zolpidem 5 MG Tab PO PRN (14:25)
[2021-10-30] MEDS ORDERED: Ondansetron 4 MG/2 ML SDV IVPUSH PRN (14:25)
[2021-10-30] MEDS ORDERED: Docusate Sodium 100 MG Cap PO PRN (14:25)
[2021-10-30] MEDS ORDERED: Albuterol 0.083% 2.5 MG/3 ML Neb Soln NEB PRN (14:25)
[2021-10-30] MEDS ORDERED: Lactulose Soln 10 GM/15 ML 30 ML UD Cup PO SCH (14:45)
[2021-10-30] MEDS ORDERED: Pantoprazole 40 MG Vial IVPUSH SCH (15:00)
[2021-10-30] MEDS: Pantoprazole 40 MG Vial IVPUSH SCH ×2 (17:00→21:06)
[2021-10-30] MEDS: Lactulose Soln 10 GM/15 ML 30 ML UD Cup PO SCH ×2 (17:01→21:11)
[2021-10-30 19:40] LABS: ANION GAP 14.7 mEq/L (7-13)
[2021-10-30] MEDS ORDERED: Calcium Gluconate 10% 1 GM/10 ML SDV IVPUSH ONE (20:09)
[2021-10-30] MEDS: Sodium Chloride 0.9% 1,000 ML IV SCH (23:03)
[2021-10-31] MEDS ORDERED: Furosemide 20 MG/2 ML VIAL IVPUSH ONE ×2 (04:00→07:42)
[2021-10-31 07:25] LABS: ANION GAP 17.1 mEq/L (7-13)
[2021-10-31] MEDS ORDERED: 50% Dextrose in Water 50 ML Syringe IVPUSH ONE (07:39)
[2021-10-31] MEDS ORDERED: 50% Dextrose in Water 50 ML Syringe IVPUSH PRN (07:39)
[2021-10-31] MEDS ORDERED: Glucagon,Human Recombinant 1 MG Vial IM PRN (07:39)
[2021-10-31] MEDS ORDERED: Insulin Regular, Human 100 Units/ML 3 ML Vial IV ONE (07:39)
[2021-10-31] MEDS ORDERED: Calcium Gluconate 10% 1 GM/10 ML SDV IVPUSH ONE (07:40)
[2021-10-31] MEDS ORDERED: Sodium Polystyrene Sulfonate 15 GM/60 ML Susp 60 ML Bot PO ONE (07:40)
[2021-10-31] MEDS: Pantoprazole 40 MG Vial IVPUSH SCH (08:08)
[2021-10-31] MEDS: Lactulose Soln 10 GM/15 ML 30 ML UD Cup PO SCH (09:43)
[2021-10-31 11:31] LABS: ANION GAP 18.1 mEq/L (7-13)
[2021-10-31] MEDS: Sodium Chloride 0.9% 1,000 ML IV SCH (12:41)
[2021-10-31 16:52] LABS: ANION GAP 19.2 mEq/L (7-13)
== END 2021-10-31 17:30 | disposition home or self-care (01) ==
LOC: DL.ED 11:05 → DL.MS 13:48
PROVIDERS: ADMIT Internal Medicine; ATTEND Internal Medicine
DX: D64.9 Anemia, unspecified (principal); I10 Essential (primary) hypertension; E87.5 Hyperkalemia; Z86.16 Personal history of COVID-19; Z87.891 Personal history of nicotine dependence; Z79.899 Other long term (current) drug therapy; Z20.822 Contact with and (suspected) exposure to COVID-19
CPT/HCPCS: 0241U; 36410; 36415; 36430; 51702; 80048; 80053; 80305-QW; 80307; 81003; 82140; 82150; 82272; 83615; 83690; 83880; 84132; 85018; 85025; 85027; 85384; 85610; 85730; 86850; 86870; 86900; 86901; 86920; 86922; 96361; 96374; 96375; 96376; 99222; 99232; 99239; 99284; 99284-25; A9270-GY; C9113; G0378; J0610; J1100; J1815-GY; J1940; J7030; P9016